=== PATIENT | male | born 1945 | race Two or more races ===

== ENCOUNTER 2018-01-13 07:55 | Day surgery (SDC) | payer MEDICARE, OTHER ==
--- NOTE | 2018-01-09 14:39 | Pre-Procedure Note/Attestation ---
Pre-Procedure Note/Attestation Complete Prior to Procedure Planned Procedure: right Procedure Narrative: 1. CATARACT EXTRACTION WITH PHACO AND PC IOL IMPLANTATION, RIGHT EYE. 2. LIMBAL RELAXING INCISION, RIGHT EYE. 3.MALYUGIN RING INSERTION, RIGHT EYE FOR FLOPPY IRIS SYNDROME. 4.COMPLEX CATARACT , RIGHT EYE Indications for Procedure Pre-Operative Diagnosis: 1. CATARACT (AGE RELATED NUCLEAR) ,RIGHT EYE. 2.ASTIGMATISM , RIGHT EYE. 3. FLOPPY IRIS SYNDROME,RIGHT EYE 4. COMPLEX CATARACT , RIGHT EYE. Attestation I attest that I discussed the nature of the procedure; its benefits; risks and complications; and alternatives (and the risks and benefits of such alternatives ), prior to the procedure, with the patient (or the patient's legal motor vehicle field representative). I attest that, if there was a reasonable possibility of needing a blood transfusion, the patient (or the patient's legal motor vehicle field representative) was given the [facility] standardized written summary, pursuant to the Narciso [place] Blood Safety Act ([place] Health and Safety Code # 1645, as amended). I attest that I re-evaluated the patient just prior to the surgery and that there has been no change in the patient's H&P, except as documented below: BOB ENCINAS Jan 09, 2018 14:39
[2018-01-13] VITALS (10 sets, daily range): BP systolic 95–119; BP diastolic 59–75
[~2018-01-13] VITALS: Ht 180.3 cm; Wt 91.6 kg
--- NOTE | 2018-01-13 07:05 | Anethesia Preoperative Eval ---
Anesthesia Pre-op PMH/ROS General Date of Evaluation: Jan 13, 2018 Time of Evaluation: 07:03 Anesthesiologist: maryam ASA Score: ASA 4 Mallampati Score Class I : Soft palate, uvula, fauces, pillars visible Class II: Soft palate, uvula, fauces visible Class III: Soft palate, base of uvula visible Class IV: Only hard plate visible Mallampati Classification: Class II Surgeon: slim Diagnosis: cataract right eye Surgical Procedure: cataract extraction w/ iol right Anesthesia History: none Social History: current smoker Family History: no anesthesia problems Allergies: Coded Allergies: No Known Allergies (Unverified , 01/12/18) Medications: see eMAR Past Medical History Cardiovascular: Reports: HTN, MD, arrhythmia, other - chf, hypercholesterolemia , pacemaker Pulmonary: Reports: other - sob HEENT: Reports: cataract (L), cataract (R) Musculoskeletal/Integumentary: Reports: OA Anesthesia Pre-op Phys. Exam Physician Exam Last Vital Signs Date Time Temp Pulse Resp B/P (MAP) Pulse Ox O2 Delivery O2 Flow Rate FiO2 01/13/18 08:22 97.0 65 18 110/72 96 Room Air Constitutional: NAD Neurologic: CN 2-12 intact Cardiovascular: other - paced rhythm Respiratory: CTA Gastrointestinal: S/NT/ND Airway Exam Mallampati Score: Class II MO: full Neck: supple ROM: full - 2fb Anesthesia Pre-op A/P Studies Pre-op Studies: EKG - a fib paced rhythm Risk Assessment & Plan Assessment: asa4 Plan: mac Status Change Before Surgery: No Pre-Antibiotics Drug: TORRIE Perkins Jan 13, 2018 07:05
[~2018-01-13 07:55] MED LIST: Atropine Inj 1mg/10ml Syr IV PRN; BSS 15ml BTL ONE; BSS 500ml btl ONE; Carbachol 0.01% Op Soln 1.5ml vial ONE; Dexamethasone 4mg/ml vial ONE; DiphenhydrAMINE 50mg/ml Inj IVP PRN; EPINEPHrine 1mg/1ml Amp ONE; Lidocaine 1% MPF 10mg/ml 5ml ONE; METOPROLOL TART50 M1 ORAL; Midazolam 2mg/2ml Inj IVP PRN; Povidone-Iodine 5% opth solution ONE; Sodium Hyaluronate 10 mg/ml 0.85ml ONE; Tetracaine 0.5% Opth 4ml Soln ONE; acetaZOLAMIDE 125mg tab ORAL ONE; fentaNYL 100 mcg/2 mL IV PRN
[2018-01-13] MEDS ORDERED: Vigamox Opth Soln 3ml ONE (08:19)
[2018-01-13] MEDS ORDERED: Akten 3.5% 1ml Btl ONE (08:19)
[2018-01-13] MEDS ORDERED: Phenylephrine 10% Opth Soln 5ml ONE (08:19)
[2018-01-13] MEDS ORDERED: Tropicamide 1% Opth 15ml Soln ONE (08:19)
[2018-01-13] MEDS ORDERED: Ketorolac Tromethamine Opth 5ml Soln ONE (08:19)
[2018-01-13] MEDS: Vigamox Opth Soln 3ml RIGHT EYE SCH ×3 (08:21→08:46)
[2018-01-13] MEDS: Tropicamide 1% Opth 15ml Soln RIGHT EYE SCH ×3 (08:21→08:46)
[2018-01-13] MEDS: Phenylephrine 10% Opth Soln 5ml RIGHT EYE SCH ×3 (08:21→08:47)
[2018-01-13] MEDS: Akten 3.5% 1ml Btl RIGHT EYE SCH ×3 (08:23→08:46)
[2018-01-13] MEDS: Ketorolac Tromethamine Opth 5ml Soln RIGHT EYE SCH ×3 (08:23→08:46)
[2018-01-13] MEDS ORDERED: CRESTOR40 MG ORAL (08:52)
[2018-01-13] MEDS ORDERED: LOVAZA1 GM ORAL (08:52)
[2018-01-13] MEDS ORDERED: ELIQUIS5 MG PO (08:52)
[2018-01-13] MEDS ORDERED: LASIX40 MG ORAL (08:52)
[2018-01-13] MEDS ORDERED: EPLERENONE25 MG PO (08:52)
[2018-01-13] MEDS ORDERED: VITAMIN D400 INTLU ORAL (08:52)
[2018-01-13] MEDS ORDERED: ASPIR 8181 MG ORAL (08:52)
[2018-01-13] MEDS ORDERED: METFORMIN HCL500 M5 PO (08:52)
[2018-01-13] MEDS ORDERED: ENTRESTO 49 MG1 EACH PO (08:52)
[2018-01-13] MEDS ORDERED: DIGOXIN125 MCG ORAL (08:52)
[2018-01-13] MEDS ORDERED: LR 1000ml ONE (09:00)
[2018-01-13] MEDS ORDERED: Sterile Water Irrig 1000ml IRRIG ONE (09:00)
[2018-01-13] MEDS ORDERED: NS Irrig 1000ml ONE (09:00)
[2018-01-13] MEDS ORDERED: Midazolam 2mg/2ml Inj ONE (09:00)
[2018-01-13] MEDS ORDERED: Sodium Chloride 10ml vial INJ ONE (09:00)
[2018-01-13] MEDS ORDERED: fentaNYL 100 mcg/2 mL IV ONE (09:00)
--- NOTE | 2018-01-13 09:52 | Discharge Summary ---
Discharge Summary Discharge Summary Discharge Summary DATE OF ADMISSION: 01/13/2018 DATE OF DISCHARGE: 01/13/2018 REASON FOR HOSPITALIZATION: SURGERY PERFORMED: 1- Cataract extraction, right eye 2- LRI OD CONDITION IN THE HOSPITAL:The patient tolerated the surgery without complications. DISCHARGE CONDITION: The patient was stable at discharge. DISCHARGE MEDICATIONS: 1. Vigamox eye drops one drop q.i.d, OD 2. Prednisolone one drop q.i.d, OD 3. Acular, one drop qid, OD POSTOPERATIVE ORDERS: The patient has to rest at home. No bending, No lifting, No watching Television tonight. POSTOPERATIVE FOLLOW UP: The patient will be followed in my office tomorrow morning at 7 o'clock. BOB ENCINAS Jan 13, 2018 09:52
--- NOTE | 2018-01-13 09:55 | Brief Operative Note ---
Immediate Post Operative Note Operative Note Chief Complaint: Blurry vision, difficulty driving and reading, right eye Pre-op Diagnosis: 1. CATARACT (AGE RELATED NUCLEAR) ,RIGHT EYE. 2.ASTIGMATISM , RIGHT EYE. 3. FLOPPY IRIS SYNDROME,RIGHT EYE 4. COMPLEX CATARACT , RIGHT EYE. Procedure: 1- Cataract extraction with phaco and PC IOL implantation, right eye 2- lIMBAL RELAXIN iNCISION ( lri ), RIGHT EYE Post-op Diagnosis: same as pre-op Surgeon: Maulik Coates md Statistical Programmer: nONE Additional Surgeons: nONE Anesthesiologist: dR. Rincon Anesthesia: MAC Specimen: none Complications: none Condition: stable Fluids: 500ML Estimated Blood Loss: none Drains: none Implant(s) used?: Yes - mONOFOCAL pc iol IMPLANTED IN THE RIGHT EYE WITHOUT COMPLICATION MAULIK COATES Jan 13, 2018 09:55
--- NOTE | 2018-01-13 10:48 | Immediate Post-Op Evaluation ---
Immediate Post-Op Evalulation Immediate Post-Op Evalulation Procedure: cataract extraction w/ iol right Date of Evaluation: Jan 13, 2018 Time of Evaluation: 10:04 IV Fluids: 500ml lr Blood Products: none Estimated Blood Loss: negligible Blood Pressure Systolic: 112 Blood Pressure Diastolic: 64 Pulse Rate: 61 Respiratory Rate: 18 O2 Sat by Pulse Oximetry: 97 Temperature (Fahrenheit): 97.3 Pain Score (1-10): 0 Nausea: No Vomiting: No Complications none Patient Status: awake, reacts, patent Hydration Status: adequate Drug: TORRIE Perkins Jan 13, 2018 10:48
--- NOTE | 2018-01-13 10:50 | 48 Hour Post Anesthesia Eval ---
Post Anesthesia Evaluation Procedure: cataract extraction w/ iol right Date of Evaluation: Jan 13, 2018 Time of Evaluation: 10:06 Blood Pressure Systolic: 113 0: 63 Pulse Rate: 60 Respiratory Rate: 18 Temperature (Fahrenheit): 97.3 O2 Sat by Pulse Oximetry: 97 Airway: patent Nausea: No Vomiting: No Pain Intensity: 0 Hydration Status: adequate Cardiopulmonary Status: stable Mental Status/LOC: patient returned to baseline Post-Anesthesia Complications: none Follow-up care needed: N/A TORRIE FERNANDEZ Jan 13, 2018 10:50
--- NOTE | 2018-01-14 17:45 | Operative Note - Dictated ---
DATE OF OPERATION: 01/13/2018 FACILITY: [facility]. SURGEON: Chuy Torres M.D. SALES AND IN HOME DELIVERY SPECIALIST: None. ANESTHESIOLOGIST: Yumi Dickinson M.D. ANESTHESIA: Monitored anesthesia care (MAC). PREOPERATIVE DIAGNOSES: 1. Cataract, right eye. 2. Astigmatism of the right eye. POSTOPERATIVE DIAGNOSES: 1. Cataract, right eye. 2. Astigmatism of the right eye. SURGERY PERFORMED: 1. Cataract extraction with phacoemulsification and posterior chamber intraocular lens implantation in the right eye. 2. Limbal relaxing incision (LRI) in the right eye. INDICATION FOR SURGERY: The patient is a 72-year-old gentleman with history of coronary artery disease, status post several MO, ischemic cardiomyopathy with ejection fraction in the 30s, hypokinetic apex, right femoral aneurysm PTCA, paroxysmal atrial fibrillation, CHF, diabetes mellitus type 2, hyperlipidemia, chronic foot pain, colon polyp, history of CHF, and cataract. He had some surgery in the past, CABG and right femoral stent placement, PPM/AICD placement, tonsillectomy, colonoscopy, and polypectomy. Medications including , Diovan, Crestor, atorvastatin, and amiodarone. The patient has pacemaker as well. He is complaining of blurred vision in the right eye. On examination of the right eye, the cornea is clear. Anterior chamber is clean and quiet, but is very shallow. Pupillary reflex is normal. There is no RAPD. There is 4+ cortical cataract and 4+ nuclear sclerosis. Funduscopy shows normal optic disk, normal macula, and periphery retina is flat. To improve his vision in the right eye, the cataract has to be removed and posterior chamber intraocular lens has to be implanted. INFORMED CONSENT: The nature of the surgery, risks, benefits, alternatives, and potential complications were explained all in detail to the patient in his language, Farsi. The potential complications including, but not limited to bleeding, infection, posterior capsular rupture, lens subluxation, flat anterior chamber, iris prolapse, uveitis, corneal edema, macular edema, endophthalmitis, retinal detachment, loss of vision, and even loss of the eye were all explained in detail to the patient in his language, Farsi. The patient voiced understanding and accepted all the complications. The alternatives including accommodating lens, multifocal lens, toric lens, and conventional cataract surgery with limbal relaxing incision (LRI) for treatment of astigmatism were all explained in detail to the patient in his language Farsi. The patient voiced understanding. The patient elected to have only conventional cataract surgery with limbal relaxing incision for treatment of astigmatism in the right eye. Then, he signed a consent form, which is in the chart. DESCRIPTION OF SURGERY AND FINDINGS: Following that, the patient was taken to the operation room in stable condition. Lidocaine gel, Akten 3.5% were applied to the conjunctiva of the right eye. IV sedation was given by the anesthesiologist, Dr. Dickinson. After adequate anesthesia and sedation had been achieved, the right eye was prepped and draped in the sterile fashion for intraocular surgery. Following that, a speculum was placed in the right eye. Before the patient was taken to the operation room, the cornea was marked at 180 and 90 meridian. In the operation room, using a corneal marker and marking pen, the steep meridian of the cornea was marked. Following that, using a shukri knife with 600 micron blade, two parallel incisions were placed on the steep meridian of the cornea to treat astigmatism. Following that, using a Super Sharp knife, a clear corneal side port was created. A 1% lidocaine without preservative (MPF) was injected into the anterior chamber. Viscoelastic agent, Healon was injected into the anterior chamber. Following that, using a 2.8 mm keratome, clear corneal temporal keratotomy was created. Viscoelastic agent, Healon was injected into the anterior chamber again. Following that, a VisionBlue was inserted under the viscoelastic agent. Following that, a clear viscoelastic agent was injected into the anterior chamber again. Under the viscoelastic agent, anterior capsulotomy was performed in the fashion of capsulorrhexis beautifully. Following that, all viscoelastic agent was removed from the anterior chamber. Following that, using balanced salt solution, hydrodissection, and hydrodelineation was performed and the nucleus was freed. Following that, a clear fresh viscoelastic agent, Healon was injected into the anterior chamber to protect the endothelium of the cornea. Following that, using the phacoemulsification machine in the fashion of horizontal chop, the nucleus was removed in toto. Following that, using irrigation aspiration unit, the cortical material was removed from the capsular bag and the capsular bag was polished. Following that, the capsular bag was filled with viscoelastic agent, Healon. Following that, a +21.5 diopter PCB00 foldable PCIOL with serial number [id number] was injected into the capsular bag. Using a Sinskey hook, the lens was manipulated and put in the proper position. Following that, the viscoelastic agent was removed from the anterior and posterior part of the lens. Following that, the anterior chamber was filled with balanced salt solution and the wound was hydrated with balanced salt solution. Following that, the wound was checked for leakage and there was no leakage. At the end of the surgery, Vigamox eye drops were applied to the conjunctiva of the right eye. The patient tolerated the surgery without complications. At the end of the surgery, the eye was patched with a clear sterile fenestrated shield. Following that, the patient was transferred to the recovery room. In the recovery room, 125 mg Diamox was given by mouth stat. Postoperative orders and directions were given to the patient. The patient will be discharged home upon stabilization. The patient will be followed in my office tomorrow morning at 9 o'clock. Chuy Torres M.D. DR: LORI JOB#: [id number] CC:
--- NOTE | 2018-01-14 23:30 | Pre-op HX & Phy Repo 2 SIG ---
DATE OF ADMISSION: 01/13/2018 NOTE: POOR AUDIO QUALITY PRESURGICAL INTERNAL MEDICINE HISTORY AND PHYSICAL REASON FOR EVALUATION: I was asked by Dr. Chuy Torres to see this 72-year-old male who is going for elective surgery on the right eye. The patient has a cataract, right eye. The patient was evaluated. Chart was reviewed. see manager cleaning, History and Physical by Dr. Chuy Torres. PAST MEDICAL HISTORY AND REVIEW OF SYSTEMS: Remarkable for history of coronary heart disease and heart attack x2, coronary artery bypass surgery and permanent pacemaker defibrillator implant , type 2 diabetes mellitus, atrial fibrillation, congestive heart failure, bronchitis . The patient has history of benign prostatic hypertrophy and congestive heart failure. No asthma or bronchitis. . No anemia. No thyroid problem. PAST SURGICAL HISTORY: Tonsillectomy as a child, two coronary artery bypass surgeries, pacemaker and defibrillator implant, and . ALLERGIES: Not known to medications or food. CURRENT MEDICATIONS: Metformin, metoprolol, , and potassium supplement. HABITS: The patient is a smoker for more than 55 years. Occasional alcohol. No street drugs. FAMILY HISTORY: Mother is alive. Father, , cause unknown. PHYSICAL EXAMINATION: GENERAL: Alert, well-developed, well-nourished male in his 70s, in no acute distress. VITAL SIGNS: Blood pressure 110/72, temperature 97.7, heart rate is 64, and O2 saturation 96% on room air. The patient is 5 feet 11 inches tall, and he weighs 183 pounds. SKIN: pale. No rashes. LYMPHATIC: Lymph nodes not enlarged. HEENT: Head, normocephalic. Ears, clear. Eyes, full description per Dr. Chuy Torres. Mouth is clear and moist. No ulcers. NECK: No jugular venous distention. Carotids artery +2. Trachea midline. CHEST: No deformity. Implanted external defibrillator. LUNGS: Clear to auscultation and percussion. . No rales or rhonchi. HEART: Atrial fibrillation . No murmur. No ectopy. ABDOMEN: Soft and benign. Liver and spleen are not enlarged. GENITOURINARY: . EXTREMITIES: Edema +1. BREASTS: Clear. EXTREMITIES: No varicose veins or calf tenderness. NERVOUS SYSTEM: No tremor. No nystagmus. . LABORATORY DATA: Lab work from outside within normal limits. Blood sugar IMPRESSION: 1. Cataract, right eye. 2. Atherosclerotic heart disease. 3. Permanent pacemaker, defibrillator, ejection fraction of 30% 4. Diabetes mellitus type 2. 5. Benign prostatic hypertrophy. Blood sugar was around currently at 108, . PLAN: Cataract extraction, right eye with intraocular lens implant per Dr. Chuy Torres. CONCLUSION: The patient has multiple medical problems including atherosclerotic heart disease, congestive heart failure, and atrial fibrillation. The patient also has diabetes mellitus type 2, controlled and benign prostatic hypertrophy. The patient is asymptomatic. The patient did not eat or drink from last night . The patient's condition optimized for surgery. Thank you very much, Dr. Torres, for the privilege to participate in the presurgical care of this interesting patient. Agus Ring M.D. DR: Diamond JOB#: [id number] CC:
== END 2018-01-13 11:40 | disposition home or self-care (01) ==
LOC: SUR 07:55
DX: H25.11 Age-related nuclear cataract, right eye (principal); H52.201 Unspecified astigmatism, right eye; I25.10 Atherosclerotic heart disease of native coronary artery without angina pectoris; I25.2 Old myocardial infarction; Z98.61 Coronary angioplasty status; I50.9 Heart failure, unspecified; E78.5 Hyperlipidemia, unspecified; Z86.010 Personal history of colon polyps; H25.011 Cortical age-related cataract, right eye; Z95.0 Presence of cardiac pacemaker; E11.9 Type 2 diabetes mellitus without complications; Z79.84 Long term (current) use of oral hypoglycemic drugs; F17.210 Nicotine dependence, cigarettes, uncomplicated; I48.91 Unspecified atrial fibrillation; N40.0 Benign prostatic hyperplasia without lower urinary tract symptoms; Z95.810 Presence of automatic (implantable) cardiac defibrillator; Z82.49 Family history of ischemic heart disease and other diseases of the circulatory system; Z82.61 Family history of arthritis; E78.00 Pure hypercholesterolemia, unspecified; I11.0 Hypertensive heart disease with heart failure; M19.90 Unspecified osteoarthritis, unspecified site
CPT/HCPCS: 65772; 66984; 82962; J0171; J1100; J2250; J3010; J7120; V2632; 94003; 94150

== ENCOUNTER 2018-01-20 08:01 | Day surgery (SDC) | payer MEDICARE, OTHER ==
--- NOTE | 2018-01-16 16:49 | Pre-Procedure Note/Attestation ---
Pre-Procedure Note/Attestation Complete Prior to Procedure Planned Procedure: left Procedure Narrative: 1. CATARACT EXTRACTION WITH PHACO AND PC IOL IMPLANTATION, LEFT EYE. 2. LIMBAL RELAXING INCISION, LEFT EYE. 3.MALYUGIN RING INSERTION, LEFT EYE FOR FLOPPY IRIS SYNDROME. 4.COMPLEX CATARACT , LEFT EYE Indications for Procedure Pre-Operative Diagnosis: 1. CATARACT (AGE RELATED NUCLEAR) ,LEFT EYE. 2.ASTIGMATISM , LEFT EYE. 3. FLOPPY IRIS SYNDROME,LEFT EYE 4. COMPLEX CATARACT , LEFT EYE. Attestation I attest that I discussed the nature of the procedure; its benefits; risks and complications; and alternatives (and the risks and benefits of such alternatives ), prior to the procedure, with the patient (or the patient's legal merchandiser retail representative). I attest that, if there was a reasonable possibility of needing a blood transfusion, the patient (or the patient's legal merchandiser retail representative) was given the [facility] standardized written summary, pursuant to the Narciso [place] Blood Safety Act ([place] Health and Safety Code # 1645, as amended). I attest that I re-evaluated the patient just prior to the surgery and that there has been no change in the patient's H&P, except as documented below: BOB ENCINAS Jan 16, 2018 16:49
[~2018-01-20] VITALS: Ht 180.3 cm; Wt 92.1 kg
[2018-01-20] VITALS (8 sets, daily range): BP systolic 103–118; BP diastolic 61–68
--- NOTE | 2018-01-20 07:25 | Anethesia Preoperative Eval ---
Anesthesia Pre-op PMH/ROS General Date of Evaluation: Jan 20, 2018 Anesthesiologist: Fritz ASA Score: ASA 3 Mallampati Score Class I : Soft palate, uvula, fauces, pillars visible Class II: Soft palate, uvula, fauces visible Class III: Soft palate, base of uvula visible Class IV: Only hard plate visible Mallampati Classification: Class II Surgeon: Brian Diagnosis: Left cataract Surgical Procedure: Left cataract extraction with IOL Anesthesia History: none Family History: no anesthesia problems Allergies: Coded Allergies: No Known Allergies (Unverified , 01/12/18) Medications: see eMAR Past Medical History Cardiovascular: Reports: HTN, CAD - s/p CABG, arrhythmia - s/p [pacemaker, other - CHF, Denies: ID, valve dz Pulmonary: Denies: asthma, COPD, LICHA, other Gastrointestinal/Genitourinary: Denies: GERD, CRI, ESRD, other Neurologic/Psychiatric: Denies: dementia, CVA, depression/anxiety, TIA, other Endocrine: Reports: DM, Denies: hypothyroidism, steroids, other HEENT: Denies: cataract (L), cataract (R), glaucoma, [place] (L), [place] (R), other Hematology/Immune: Denies: anemia, DVT, bleeding disorder, other Musculoskeletal/Integumentary: Denies: OA, RA, DJD, DDD, edema, other PSxH Narrative: CABG, right cataract Anesthesia Pre-op Phys. Exam Physician Exam see chart Constitutional: NAD Cardiovascular: RRR Respiratory: CTA Airway Exam Mallampati Score: Class II Anesthesia Pre-op A/P Labs see chart Studies Pre-op Studies: EKG - evidence of prior anteroseptal infarct Risk Assessment & Plan Assessment: ASA III Plan: MAC Status Change Before Surgery: No Pre-Antibiotics Drug: N/A LACHO YEBOAH M.D. Jan 20, 2018 07:25
[~2018-01-20 08:01] MED LIST changes: +ASPIR 8181 MG ORAL; -Atropine Inj 1mg/10ml Syr IV PRN; +CRESTOR40 MG ORAL; +DIGOXIN125 MCG ORAL; +DiphenhydrAMINE 50mg/ml Inj ONE; +ELIQUIS5 MG PO; +ENTRESTO 49 MG1 EACH PO; +EPLERENONE25 MG PO; +LASIX40 MG ORAL; +LOVAZA1 GM ORAL; +LR 1000ml 1,000 ML IVLG SCH; +METFORMIN HCL500 M5 PO; -Midazolam 2mg/2ml Inj IVP PRN; -Tetracaine 0.5% Opth 4ml Soln ONE; +VITAMIN D400 INTLU ORAL; -fentaNYL 100 mcg/2 mL IV PRN
[2018-01-20] MEDS ORDERED: Phenylephrine 10% Opth Soln 5ml ONE (08:30)
[2018-01-20] MEDS ORDERED: Ketorolac Tromethamine Opth 5ml Soln ONE (08:31)
[2018-01-20] MEDS ORDERED: Vigamox Opth Soln 3ml ONE (08:31)
[2018-01-20] MEDS ORDERED: Tropicamide 1% Opth 15ml Soln ONE (08:31)
[2018-01-20] MEDS ORDERED: Akten 3.5% 1ml Btl ONE (08:31)
[2018-01-20] MEDS: Ketorolac Tromethamine Opth 5ml Soln LEFT EYE SCH ×3 (08:32→09:06)
[2018-01-20] MEDS: Akten 3.5% 1ml Btl LEFT EYE SCH ×3 (08:32→09:06)
[2018-01-20] MEDS: Phenylephrine 10% Opth Soln 5ml LEFT EYE SCH ×3 (08:32→09:06)
[2018-01-20] MEDS: Tropicamide 1% Opth 15ml Soln LEFT EYE SCH ×3 (08:32→09:06)
[2018-01-20] MEDS: Vigamox Opth Soln 3ml LEFT EYE SCH ×3 (08:33→09:06)
[2018-01-20 09:17] LABS: BASOPHILS % (AUTO) 0.5 % (0.0-2.0); EOSINOPHILS % (AUTO) 0.9 % (0.0-3.0); HEMATOCRIT 43.8 % (42.0-52.0); HEMOGLOBIN 14.6 G/DL (14.2-18.0); MEAN CORPUSCULAR VOLUME 94 FL (80-99); MONOCYTES % (AUTO) 5.3 % (1.0-10.0); NEUTROPHILS % (AUTO) 69.3 % (45.0-75.0); PLATELET COUNT 130 K/UL (150-450); RED BLOOD COUNT 4.64 M/UL (4.70-6.10); RED CELL DISTRIBUTION WIDTH 14.2 % (11.6-14.8); WHITE BLOOD COUNT 5.4 K/UL (4.8-10.8)
[2018-01-20 09:25] LABS: ANION GAP 10 mmol/L (5-15); BLOOD UREA NITROGEN 15 mg/dL (7-18); CARBON DIOXIDE 26 MMOL/L (21-32); CHLORIDE 104 MMOL/L (98-107); POTASSIUM 3.7 MMOL/L (3.5-5.1); SODIUM 140 MMOL/L (136-145)
--- NOTE | 2018-01-20 10:19 | Immediate Post-Op Evaluation ---
Immediate Post-Op Evalulation Immediate Post-Op Evalulation Procedure: Left cataract extraction with IOL Date of Evaluation: Jan 20, 2018 Time of Evaluation: 11:22 IV Fluids: 500 Blood Products: 0 Estimated Blood Loss: 0 Urinary Output: 0 Blood Pressure Systolic: 109 Blood Pressure Diastolic: 67 Pulse Rate: 61 Respiratory Rate: 16 O2 Sat by Pulse Oximetry: 98 Temperature (Fahrenheit): 98.1 Pain Score (1-10): 0 Nausea: No Vomiting: No Complications 0 Patient Status: awake, reacts, patent, none Hydration Status: adequate Drug: N/A LACHO YEBOAH M.D. Jan 20, 2018 10:19
[2018-01-20] MEDS ORDERED: NS Irrig 1000ml ONE (10:30)
[2018-01-20] MEDS ORDERED: Sterile Water Irrig 1000ml IRRIG ONE (10:30)
[2018-01-20] MEDS ORDERED: Propofol 200mg/20ml IV ONE (10:30)
[2018-01-20] MEDS ORDERED: Midazolam 2mg/2ml Inj ONE (10:30)
[2018-01-20] MEDS ORDERED: Lidocaine 1% MPF 10mg/ml 5ml ONE (10:30)
[2018-01-20] MEDS ORDERED: LR 1000ml ONE (10:30)
--- NOTE | 2018-01-20 11:18 | Discharge Summary ---
Discharge Summary Discharge Summary Discharge Summary DATE OF ADMISSION: 01/20/2018 DATE OF DISCHARGE:01/20/2018 REASON FOR HOSPITALIZATION: Cataract, left eye SURGERY PERFORMED: 1- cataract extraction, left eye 2- lri, os CONDITION IN THE HOSPITAL:The patient tolerated the surgery without complications. DISCHARGE CONDITION: The patient was stable at discharge. DISCHARGE MEDICATIONS: 1. Vigamox eye drops one drop q.i.d, os 2. Prednisolone one drop q.i.d, os 3. Prolensa one drop qd, OS POSTOPERATIVE ORDERS: The patient has to rest at home. No bending, No lifting, No watching Television tonight. POSTOPERATIVE FOLLOW UP: The patient will be followed in my office tomorrow morning at 7 o'clock. BOB ENCINAS Jan 20, 2018 11:18
--- NOTE | 2018-01-20 11:20 | 48 Hour Post Anesthesia Eval ---
Post Anesthesia Evaluation Procedure: Left cataract extraction with IOL Date of Evaluation: Jan 20, 2018 Time of Evaluation: 12:10 Blood Pressure Systolic: 111 0: 68 Pulse Rate: 60 Respiratory Rate: 22 Temperature (Fahrenheit): 98 O2 Sat by Pulse Oximetry: 96 Airway: patent Nausea: No Vomiting: No Pain Intensity: 0 Hydration Status: adequate Cardiopulmonary Status: at baseline Mental Status/LOC: patient returned to baseline Post-Anesthesia Complications: 0 Follow-up care needed: ready to discharge LACHO YEBOAH M.D. Jan 20, 2018 11:20
--- NOTE | 2018-01-20 11:21 | Brief Operative Note ---
Immediate Post Operative Note Operative Note Chief Complaint: Bl[place] vision, difficulty driving and reading, left eye Pre-op Diagnosis: 1. CATARACT (AGE RELATED NUCLEAR) ,LEFT EYE. 2.ASTIGMATISM , LEFT EYE. 3. FLOPPY IRIS SYNDROME,LEFT EYE 4. COMPLEX CATARACT , LEFT EYE. Procedure: 1- cataract extraction with phaco and PC IOL implantation, lefte ye 2- Limbal Relaxing Incision, ( LRI ), left eye Post-op Diagnosis: same as pre-op Surgeon: Bob Torres MD. Tannery Gummer: None Additional Surgeons: None Anesthesiologist: Dr. Hu Anesthesia: MAC Specimen: none Complications: none Condition: stable Fluids: 500ml Estimated Blood Loss: none Drains: none Implant(s) used?: Yes - Monofocal PC IOL implanted in the left eye without complication BOB TORRES Jan 20, 2018 11:21
--- NOTE | 2018-01-21 05:15 | Operative Note - Dictated ---
DATE OF OPERATION: 01/20/2018 FACILITY: [facility]. SURGEON: Chuy Torres M.D. TEST PILOT: None. ANESTHESIOLOGIST: Dr. Hu. ANESTHESIA: Monitored anesthesia care (MAC). PREOPERATIVE DIAGNOSES: 1. Cataract, left eye. 2. Astigmatism, left eye. POSTOPERATIVE DIAGNOSES: 1. Cataract, left eye. 2. Astigmatism, left eye. SURGERY PERFORMED: 1. Cataract extraction with phacoemulsification of posterior chamber intraocular lens implantation in the left eye. 2. Limbal relaxing incision (LRI) in the left eye. INDICATIONS FOR SURGERY: The patient is a 72-year-old gentleman with a history of coronary artery disease, status post several ME, ischemic cardiomyopathy with ejection fraction in the rate of , hypokinetic apex, right femoral aneurysm, PTCA, paroxysmal atrial fibrillation, CHF, diabetes mellitus type 2, hyperlipidemia, chronic foot pain, colon polyp, history of CHF, and cataract. He has had cataract surgery in the right eye and he is very happy with the result. He had some surgery in the past, CABG and right femoral stent placement, PPM/AICD placement, tonsillectomy, colonoscopy, and polypectomy. Medications including Diovan, Crestor, atorvastatin, and amiodarone. The patient has pacemaker as well. He is complaining of blurry vision in the left eye. On examination of the left eye, the cornea is clear, but there is some deposit in the cornea. Anterior chamber is clean and quiet, but is very shallow. Pupillary reflex is normal. There is no RAPD. There is 4+ cortical cataract and 4+ nuclear sclerosis. Funduscopy showed normal optic disc, normal macula, flat. To improve his vision in the left eye, the cataract has to be removed and posterior chamber intraocular lens has to be implanted. INFORMED CONSENT: The nature of the surgery, risks, benefits, alternatives, and potential complications were explained in detail to the patient in his language, Farsi. The potential complications including, but not limited to bleeding, infection, posterior capsular rupture, lens subluxation, flat anterior chamber, iris prolapse, uveitis, corneal edema, macular edema, endophthalmitis, retinal detachment, loss of vision, and even loss of the eye were all explained in detail to the patient in his language, Farsi. The patient voiced understanding and accepted all the complications. The alternatives including accommodating lens, multifocal lens, toric lens, and conventional cataract surgery with limbal relaxing incision (LRI) for treatment of astigmatism were all explained in detail to the patient in his language, Farsi. The patient voiced understanding. The patient elected to have only conventional cataract surgery with limbal relaxing incision for the treatment of astigmatism in the right eye. Then, he signed the consent form, which is in the chart. DESCRIPTION OF SURGERY AND FINDINGS: Following that, the patient was taken to the operation room in a stable condition and lidocaine gel, Akten 0.5% were applied to the conjunctiva of the left eye. Anesthesia was given by the anesthesiologist, Dr. Hu. After adequate anesthesia and sedation had been achieved, the left eye was prepped and draped in the sterile fashion for intraocular surgery. Following that, a speculum was placed in the left eye. Before the patient was taken to the operation room, the cornea was marked at 180 and 90 meridian. In the operation room, using a corneal marker and marking pen, the steep meridian of the cornea was marked. Following that, using a shukri knife with 600 micron blade, two parallel incisions were placed on the steep meridian of the cornea to treat the astigmatism. Following that, using a Super Sharp knife, a clear corneal side port was created. The 1% lidocaine without preservative (MPF) was injected into the anterior chamber. Viscoelastic agent, Healon was injected into the anterior chamber. Following that, using a 2.8 mm keratome, clear corneal temporal keratotomy was performed. Viscoelastic agent, Healon was injected into the anterior chamber again. Following that, a VisionBlue was injected under the viscoelastic agent to stain the anterior capsule of the crystalline lens. Following that, clear fresh viscoelastic agent, Healon was injected into the anterior chamber again. Under the viscoelastic agent, an anterior capsulotomy was performed in the fashion of capsulorrhexis beautifully. Following that, all viscoelastic agent was removed from the anterior chamber. Following that, using balanced salt solution, hydrodissection and hydrodelineation was performed and then the nucleus was freed. Following that, clear fresh viscoelastic agent, Healon was injected into the anterior chamber to protect the endothelium of the cornea. Following that, using phacoemulsification machine in the fashion of horizontal chop, the nucleus was removed in toto. Following that using irrigation and aspiration unit, the cortical material was removed from the capsular bag and the capsular bag was polished. Following that the capsular bag was filled with viscoelastic agent, Healon. Following that, a +22.0 diopter PCB00 foldable PCIOL with serial number ([id number]) was inserted into the capsular bag. Using Sinskey hook, the lens was manipulated within the proper position. Following that, the viscoelastic agent was removed from the anterior posterior part of the lens. Following that, the anterior chamber was filled with balanced salt solution. Following that, the wound was hydrated with balanced salt solution. The wound was checked for leakage. There was no leakage. Vigamox eye drops were applied to the conjunctiva of the left eye. The patient tolerated the surgery without complications. At the end of the surgery, the . Following that, the patient was transferred to the recovery room and Diamox was given by mouth stat. Postoperative orders and directions were given to the patient. The patient will be discharged home upon stabilization. office tomorrow morning at 10:30 a.m. Chuy Torres M.D. DR: Sandhya JOB#: [id number] CC:
--- NOTE | 2018-02-23 21:16 | Pre-op HX & Phy Repo 2 SIG ---
DATE OF ADMISSION: 01/20/2018 PRESURGICAL INTERNAL MEDICINE HISTORY AND PHYSICAL REASON FOR EVALUATION: I was asked by Dr. Chuy Torres to see this 72-year-old male who going for elective surgery on the left eye. The patient has nuclear cataract, left eye. The patient was evaluated. Chart was reviewed. Please see Ophthalmology History and Physical by Dr. Chuy Torres. PAST MEDICAL HISTORY AND REVIEW OF SYSTEMS: Remarkable for heart attack x3, coronary artery bypass surgery x2, two vessels, permanent pacemaker and defibrillator, aortic abdominal aneurysm, benign prostatic hypertrophy, right femoral aneurysm repair, congestive heart failure, coronary heart disease, and diabetes mellitus type 2. No history of renal failure. The patient also has history of degenerative joint disease. PAST SURGICAL HISTORY: Coronary artery bypass surgery, two vessels, defibrillator and pacemaker, eye surgery, right femoral aneurysm repair, and tonsillectomy. ALLERGIES: Not known. MEDICATIONS: Present medications include aspirin 81 mg, Eliquis, Crestor, metoprolol, metformin 1000 mg, vitamin D, Crestor, furosemide, and digoxin. SOCIAL HISTORY: The patient smoked for approximately 65 years. Occasional alcohol. FAMILY HISTORY: Father, cause of unknown and mother of old age. PHYSICAL EXAMINATION: GENERAL: Alert, well-developed and well-nourished male in his 70s, no acute distress. VITAL SIGNS: Blood pressure 102/61, temperature 97.2 degrees, pulse 60, respirations 20, and O2 saturation 96% on room air. SKIN: Dry and warm. No open wounds or rashes. Lymph nodes not enlarged. HEENT: Head, normocephalic. Ears, clear. No discharge. Eyes, full description per Dr. Chuy Torres. Mouth, clear and moist. No dentures. NECK: Supple. No jugular vein distention. Carotids artery +2. Trachea midline. CHEST: Left anterior wall implants of defibrillator and pacemaker. No asymmetry. LUNGS: Clear to auscultation and percussion. No rales or rhonchi. HEART: Rate regular. No ectopy. No murmur. No S3 or S4. ABDOMEN: Soft. No palpable mass. No organomegaly. No rebound. EXTREMITIES: No varicose veins. Left calf is in a . GENITOURINARY: History of benign prostatic hypertrophy. No dysuria. NERVOUS SYSTEM: No asymmetry. Peripheral neuropathy. LABORATORY AND DIAGNOSTIC DATA: ECG, pacemaker rhythm, rate 60 per minute. Fasting blood sugar 131 mg/dL. The patient is NPO since midnight IMPRESSION: 1. Cataract, left eye. 2. Atherosclerotic heart disease. 3. History of coronary artery bypass surgery. 4. History of congestive heart failure. 5. History of pacemaker and defibrillator. 6. Diabetes mellitus type 2. 7. Benign prostatic hypertrophy. 8. Diabetic peripheral neuropathy. 9. Osteoarthritis of the knee. 10. History of aortic femoral aneurysm. PLAN: Cataract extraction, left eye with intraocular lens implant per Dr. Chyu Torres. CONCLUSION: The patient has extensive medical history coronary heart disease and vessel disease, aortic aneurysm and femoral aneurysm. The patient also has type 2 diabetes. His vital signs are stable and O2 saturation 96%. The patient still smoking cigarette. His blood sugar is controlled. The patient did not eat or drink from last night midnight. The patient's condition optimized for surgery. Thank you very much, Dr. Torres, for the privilege to participate in the presurgical care of this interesting patient. Agus Ring M.D. DR: PATRICA JOB#: [id number] CC:
== END 2018-01-20 12:40 | disposition home or self-care (01) ==
LOC: SUR 08:01
DX: H25.12 Age-related nuclear cataract, left eye (principal); H25.012 Cortical age-related cataract, left eye; I25.2 Old myocardial infarction; I11.0 Hypertensive heart disease with heart failure; I50.9 Heart failure, unspecified; E11.9 Type 2 diabetes mellitus without complications; Z95.1 Presence of aortocoronary bypass graft; Z95.0 Presence of cardiac pacemaker; H52.202 Unspecified astigmatism, left eye; Z95.5 Presence of coronary angioplasty implant and graft; E78.5 Hyperlipidemia, unspecified; Z86.010 Personal history of colon polyps
CPT/HCPCS: 36415; 65772; 66984; 80048; 82962; 85025; 93005; J0171; J1100; J1200; J2250; J2704; J7120; V2632; 94003; 94150